=== PATIENT | female | born 1945 | race Hispanic/Latino ===

== ENCOUNTER 2018-01-20 09:26 | Emergency (ER) | payer OTHER ==
[2018-01-20] MEDS ORDERED: KETOROLAC TROMETHAMINE 30MG/ML ONE (10:41)
[2018-01-20] MEDS ORDERED: MORPHINE SULFATE 2 MG/ML 1ML SYG ONE (10:42)
[2018-01-20 11:04] LABS: BASOPHILS % (AUTO) 0.9 % (0.0-5.0); EOSINOPHILS % (AUTO) 0.7 % (0.0-8.0); HEMATOCRIT 40.9 % (36-48); LYMPHOCYTES % (AUTO) 17.8 % (21.0-51.0); MEAN CORPUSCULAR HEMOGLOBIN 28.3 pg (27.0-33.0); MEAN CORPUSCULAR HGB CONC 33.9 g/dL (32.0-36.0); MEAN CORPUSCULAR VOLUME 83.5 fL (79-99); MONOCYTES % (AUTO) 6.1 % (3.0-13.0); NEUTROPHILS % (AUTO) 74.5 % (40.0-77.0); PLATELET COUNT (AUTO) 252 K/uL (130-400); RED CELL DISTRIBUTION WIDTH 13.8 % (11.0-15.5); WHITE BLOOD COUNT (AUTO) 7.5 K/uL (4.8-10.8)
[2018-01-20 11:16] LABS: CREATININE 0.8 mg/dL (0.5-1.5); POTASSIUM 4.1 mmol/L (3.5-5.1)
[2018-01-20 11:22] LABS: ALBUMIN 3.9 g/dL (3.5-5.0); BILIRUBIN,TOTAL 0.6 mg/dL (0.2-1.0); TOTAL PROTEIN, SERUM 8.5 g/dL (6.0-8.3)
== END 2018-01-20 12:53 | disposition home or self-care (01) ==
LOC: EDH 09:26
DX: S16.1XXA Strain of muscle, fascia and tendon at neck level, initial encounter (principal); R51 Headache; M19.90 Unspecified osteoarthritis, unspecified site; I10 Essential (primary) hypertension; E07.9 Disorder of thyroid, unspecified; Z90.710 Acquired absence of both cervix and uterus; X58.XXXA Exposure to other specified factors, initial encounter; Y93.89 Activity, other specified; Y92.098 Other place in other non-institutional residence as the place of occurrence of the external cause; Y99.8 Other external cause status
CPT/HCPCS: 36415; 70450; 72125; 80053; 84484; 85025; 93005; 96374; 96375; 99285; J1885

== ENCOUNTER 2019-01-25 03:05 | Emergency (ER) | payer OTHER ==
[2019-01-25 03:38] LABS: BASOPHILS % (AUTO) 0.6 % (0.0-5.0); EOSINOPHILS % (AUTO) 1.9 % (0.0-8.0); HEMATOCRIT 37.9 % (36-48); LYMPHOCYTES % (AUTO) 25.8 % (21.0-51.0); MEAN CORPUSCULAR HEMOGLOBIN 28.5 pg (27.0-33.0); MEAN CORPUSCULAR HGB CONC 33.7 g/dL (32.0-36.0); MEAN CORPUSCULAR VOLUME 84.7 fL (79-99); MONOCYTES % (AUTO) 7.9 % (3.0-13.0); NEUTROPHILS % (AUTO) 63.8 % (40.0-77.0); NUCLEATED RED BLOOD CELLS 0.1 % (0.0-0.19); PLATELET COUNT (AUTO) 233 K/uL (130-400); RED BLOOD CELL COUNT(AUTO) 4.47 MIL/uL (4.00-5.50); RED CELL DISTRIBUTION WIDTH 13.8 % (11.0-15.5); WHITE BLOOD COUNT (AUTO) 7.5 K/uL (4.8-10.8)
[2019-01-25 03:42] LABS: POTASSIUM 4.1 mmol/L (3.5-5.1)
[2019-01-25 03:53] LABS: CREATININE 0.9 mg/dL (0.5-1.5)
[2019-01-25] MEDS ORDERED: ONDANSETRON HCL 4 MG/2 ML VIAL ONE (04:21)
[2019-01-25] MEDS ORDERED: ORPHENADRINE CITRATE 30 MG/ML ML ONE (04:22)
[2019-01-25] MEDS ORDERED: KETOROLAC TROMETHAMINE 15MG/ML ONE (04:22)
[2019-01-25] MEDS ORDERED: MORPHINE SULFATE 2 MG/ML 1ML SYG ONE (04:22)
[2019-01-25] MEDS ORDERED: SODIUM CHLORIDE 0.9% 500ML 500 ML IV ONE (06:09)
[2019-01-25] MEDS ORDERED: IOHEXOL-350 75 ML VIAL IV ONE (06:25)
== END 2019-01-25 08:54 | disposition home or self-care (01) ==
LOC: EDH 03:05
DX: R07.89 Other chest pain (principal); M62.830 Muscle spasm of back; I10 Essential (primary) hypertension; M19.90 Unspecified osteoarthritis, unspecified site; E07.9 Disorder of thyroid, unspecified; Z90.710 Acquired absence of both cervix and uterus
CPT/HCPCS: 36415; 71046; 71275; 80048; 82550; 84484; 85025; 85378; 93005; 96374; 96375; 99285; J1885; J2360; J2405; J7040; Q9967

== ENCOUNTER 2019-08-26 21:15 | Emergency (ER) | payer OTHER ==
[2019-08-26] MEDS ORDERED: DiphenhydrAMINE HCL 50 MG/ML VIAL ONE (21:24)
[2019-08-26] MEDS ORDERED: FAMOTIDINE/PF 20 MG/2 ML VIAL IV ONE (21:24)
[2019-08-26] MEDS ORDERED: METHYLPREDNISOLONE SOD SUCC 125MG/2ML VIAL ONE (21:30)
== END 2019-08-26 22:34 | disposition home or self-care (01) ==
LOC: EDH 21:15
DX: S60.562A Insect bite (nonvenomous) of left hand, initial encounter (principal); L50.0 Allergic urticaria; I10 Essential (primary) hypertension; M19.90 Unspecified osteoarthritis, unspecified site; E07.9 Disorder of thyroid, unspecified; W57.XXXA Bitten or stung by nonvenomous insect and other nonvenomous arthropods, initial encounter; Y93.89 Activity, other specified; Y92.096 Garden or yard of other non-institutional residence as the place of occurrence of the external cause; Y99.8 Other external cause status
CPT/HCPCS: 96365; 96375; 99284; J1200; J2930; J3490

== ENCOUNTER 2020-06-01 22:52 | Emergency (ER) | payer OTHER ==
[2020-06-02] MEDS ORDERED: KETOROLAC TROMETHAMINE 30MG/ML ONE (01:04)
[2020-06-02] MEDS ORDERED: TRAMADOL HCL 50 MG TABLET ONE (01:04)
== END 2020-06-02 01:33 | disposition home or self-care (01) ==
LOC: EDH 22:52
DX: S16.1XXA Strain of muscle, fascia and tendon at neck level, initial encounter (principal); I10 Essential (primary) hypertension; E07.9 Disorder of thyroid, unspecified; M19.90 Unspecified osteoarthritis, unspecified site; Z90.710 Acquired absence of both cervix and uterus; X58.XXXA Exposure to other specified factors, initial encounter; Y93.89 Activity, other specified; Y92.89 Other specified places as the place of occurrence of the external cause; Y99.8 Other external cause status
CPT/HCPCS: 72040; 96372; 99283; J1885

== ENCOUNTER 2021-08-21 09:13 | Emergency (ER) | payer OTHER ==
[~2021-08-21] VITALS: Ht 167.6 cm; Wt 68.0 kg
[2021-08-21] MEDS ORDERED: CYCLOBENZAPRINE HCL 10 MG TABLET PO ONE (10:00)
[2021-08-21] MEDS ORDERED: KETOROLAC 15MG/ML VIAL (15MG/ML) IM ONE (10:00)
[2021-08-21] MEDS ORDERED: CYCL5TAB PO (10:43)
[2021-08-21] MEDS ORDERED: IBUP-2070 PO (10:43)
[2021-08-21 10:54] VITALS: BP 159/54
== END 2021-08-21 11:02 | disposition home or self-care (01) ==
LOC: EDH 09:13
DX: M54.2 Cervicalgia (principal); M43.6 Torticollis; I10 Essential (primary) hypertension; Z98.890 Other specified postprocedural states
CPT/HCPCS: 96372; 99283; J1885

== ENCOUNTER 2022-07-19 14:49 | Emergency (ER) | payer OTHER ==
[~2022-07-19] VITALS: Ht 157.5 cm; Wt 59.0 kg
[~2022-07-19 14:49] MED LIST: CYCL5TAB PO; IBUP-2070 PO
[2022-07-19 15:38] VITALS: BP 192/74
[2022-07-19] MEDS ORDERED: ACETAMINOPHEN WITH CODEINE 1 TAB TAB PO ONE (17:30)
[2022-07-19 17:55] LABS: BASOPHILS % (AUTO) 0.4 % (0.0-5.0); EOSINOPHILS % (AUTO) 1.1 % (0.0-8.0); LYMPHOCYTES % (AUTO) 18.8 % (21.0-51.0); MEAN CORPUSCULAR HEMOGLOBIN 27.5 pg (27.0-33.0); MEAN CORPUSCULAR HGB CONC 32.3 g/dL (32.0-36.0); MEAN CORPUSCULAR VOLUME 85.2 fL (79-99); MONOCYTES % (AUTO) 5.3 % (3.0-13.0); NEUTROPHILS % (AUTO) 74.3 % (40.0-77.0); PLATELET COUNT (AUTO) 239 K/uL (130-400); RED BLOOD CELL COUNT(AUTO) 4.11 MIL/uL (4.00-5.50); RED CELL DISTRIBUTION WIDTH 13.2 % (11.0-15.5); WHITE BLOOD COUNT (AUTO) 7.3 K/uL (4.8-10.8)
[2022-07-19 18:05] LABS: POTASSIUM 4.4 mmol/L (3.5-5.1)
[2022-07-19 18:12] LABS: ALBUMIN 3.6 g/dL (3.5-5.0); TOTAL PROTEIN, SERUM 7.5 g/dL (6.0-8.3)
[2022-07-19] MEDS ORDERED: ACET-2079 PO (18:51)
== END 2022-07-19 19:02 | disposition home or self-care (01) ==
LOC: EDH 14:49
DX: S00.83XA Contusion of other part of head, initial encounter (principal); R07.81 Pleurodynia; I10 Essential (primary) hypertension; M19.90 Unspecified osteoarthritis, unspecified site; E05.90 Thyrotoxicosis, unspecified without thyrotoxic crisis or storm; Z90.710 Acquired absence of both cervix and uterus; W18.39XA Other fall on same level, initial encounter; Y93.89 Activity, other specified; Y92.89 Other specified places as the place of occurrence of the external cause; Y99.8 Other external cause status
CPT/HCPCS: 36415; 70450; 70486; 71101; 80053; 84484; 85025; 93005

== ENCOUNTER 2024-07-31 19:29 | Emergency (ER) | payer OTHER ==
[~2024-07-31] VITALS: Ht 152.4 cm; Wt 59.0 kg
[~2024-07-31 19:29] MED LIST changes: +ACET-2079 PO; -CYCL5TAB PO; +CYCL5TAB3 PO
[2024-07-31 19:59] LABS: BASOPHILS # (AUTO) 0.03 K/uL (0.00-0.20); BASOPHILS % (AUTO) 0.3 % (0.0-5.0); EOSINOPHILS # (AUTO) 0.01 K/uL (0.00-0.70); EOSINOPHILS % (AUTO) 0.1 % (0.0-8.0); HEMATOCRIT 33.4 % (36-48); IMMATURE GRANULOCYTE ABSOLUTE 0.04 K/uL (0-1); LYMPHOCYTES # (AUTO) 0.7 K/uL (1.0-4.8); LYMPHOCYTES % (AUTO) 7.2 % (21.0-51.0); MEAN CORPUSCULAR VOLUME 84.1 fL (79-99); MONOCYTES # (AUTO) 0.5 K/uL (0.1-1.0); MONOCYTES % (AUTO) 4.8 % (3.0-13.0); NEUTROPHILS # (AUTO) 8.3 K/uL (1.8-7.7); NEUTROPHILS % (AUTO) 87.2 % (40.0-77.0); PLATELET COUNT (AUTO) 247 K/uL (130-400); RED BLOOD CELL COUNT(AUTO) 3.97 MIL/uL (4.00-5.50); RED CELL DISTRIBUTION WIDTH 12.5 % (11.0-15.5); WHITE BLOOD COUNT (AUTO) 9.6 K/uL (4.8-10.8)
[2024-07-31 20:06] LABS: CREATININE 0.9 mg/dL (0.5-1.0); POTASSIUM 3.9 mmol/L (3.5-5.1)
[2024-07-31 20:49] LABS: APPEARANCE,URINE CLEAR (CLEAR); BILIRUBIN,URINE NEGATIVE (NEGATIVE); COLOR,URINE LIGHT-YELLOW (YELLOW); GLUCOSE, URINE (UA) NEGATIVE (NEGATIVE); KETONES,URINE 40 mg/dL (NEGATIVE); LEUKOCYTE ESTERASE ,URINE 500 Leu/uL (NEGATIVE); NITRATE,URINE NEGATIVE (NEGATIVE); OCCULT BLOOD,URINE SMALL (NEGATIVE); PH,URINE 6.5 (5.0-8.0); PROTEIN,URINE 10 mg/dL (NEGATIVE); UROBILINOGEN,URINE 0.2 mg/dL (0.2-1.0)
[2024-07-31 20:50] LABS: ADD UA MICROSCOPIC YES
[2024-07-31 20:52] LABS: MUCUS,URINE RARE LPF (None Seen); OTHER CASTS, URINE 2 /LPF (None Seen); RBC,URINE 26-50 /HPF (0-1); SQUAMOUS EPITHELIAL CELL,UR FEW /HPF (0-2); YEAST,URINE BUDDING RARE /HPF (None Seen)
--- NOTE | 2024-07-31 23:14 | ERN ---
General Chief Complaint: Dizzy/Light Headed Stated Complaint: DIZZINESS, WEAKNESS Time Seen by MD: 21:12 Source: patient History of Present Illness Initial Comments Is an 79-year-old female who was working outside in the d and also trying to get some medications out of her car and I think she said that she fell onto her left side. She comes in today with pain on her left wrist and forearm and left flank. Allergies: Coded Allergies: No Known Allergies (Unverified Allergy, Unknown, 01/25/19) Home Meds Active Scripts Acetaminophen with Codeine (Acetaminophen-Cod #3 Tablet) 1 Each Tablet, 1 TAB PO Q6H PRN for SEVERE PAIN (7-10), #15 TAB Prov:ADAN MATHEWS MD 07/19/22 Cyclobenzaprine HCl (Cyclobenzaprine HCl) 5 Mg Tablet, 5 MG PO TID, #15 TAB Prov:ADAN MATHEWS MD 08/21/21 Ibuprofen (Ibuprofen) 600 Mg Tablet, 600 MG PO Q6H PRN for PAIN, #30 TAB Prov:ADAN MATHEWS MD 08/21/21 Past Medical History Past Medical History: Arthritis, Hypertension, Hyperthyroid Medical History Other: THYROID Past Surgical History: Hysterectomy Social History Social History: Negative, Lives with family Female( History) History: Not Applicable ROS Dictation Aside from the chief complaint review of systems is negative she has no pain in any of her other extremities she has no visual changes no headaches no chest pain just some lateral chest wall tenderness on the left side left wrist pain no pain in her lower back or in her lower extremities no urination problems no GI symptoms Physical Exam General Appearance: (+) mild distress Orientation: (+) alert Head/Face Trauma: No Eye: bilateral eye normal inspection, bilateral eye PERRL, bilateral eye EOMI Ear, Nose, Throat: (+) hearing grossly normal, (+) normal ENT inspection Neck: (+) normal inspection, (+) supple, (+) no JVD, (+) non-tender Respiratory: (+) lungs clear, (+) well ventilated Heart: (+) regular Vascular: (+) no edema, (+) normal peripheral pulse Gastrointestinal: (+) soft, (+) non-tender, (+) no organomegaly, (+) bowel sound present Skin: (+) normal color Skin Comment Patient does have severe tenting of her skin Results Laboratory and Microbiology Lab and Micro Result Laboratory Tests Test 07/31/24 19:50 07/31/24 20:42 White Blood Count 9.6 K/uL (4.8-10.8) Red Blood Count 3.97 MIL/uL (4.00-5.50) L Hemoglobin 10.7 g/dL (12.0-16.0) L Hematocrit 33.4 % (36-48) L Mean Corpuscular Volume 84.1 fL (79-99) Mean Corpuscular Hemoglobin 27.0 pg (27.0-33.0) Mean Corpuscular Hemoglobin Concent 32.0 g/dL (32.0-36.0) Red Cell Distribution Width 12.5 % (11.0-15.5) Platelet Count 247 K/uL (130-400) Mean Platelet Volume 10.2 fL (7.5-10.5) Immature Granulocyte % (Auto) 0.4 % (0-1) Neutrophils (%) (Auto) 87.2 % (40.0-77.0) H Lymphocytes (%) (Auto) 7.2 % (21.0-51.0) L Monocytes (%) (Auto) 4.8 % (3.0-13.0) Eosinophils (%) (Auto) 0.1 % (0.0-8.0) Basophils (%) (Auto) 0.3 % (0.0-5.0) Neutrophils # (Auto) 8.3 K/uL (1.8-7.7) H Lymphocytes # (Auto) 0.7 K/uL (1.0-4.8) L Monocytes # (Auto) 0.5 K/uL (0.1-1.0) Eosinophils # (Auto) 0.01 K/uL (0.00-0.70) Basophils # (Auto) 0.03 K/uL (0.00-0.20) Absolute Immature Granulocyte (auto 0.04 K/uL (0-1) Nucleated Red Blood Cells 0.0 % (0.0-0.19) White Cell Morphology Comment See comments Sodium Level 136 mmol/L (136-145) Potassium Level 3.9 mmol/L (3.5-5.1) Chloride Level 100 mmol/L (101-111) L Carbon Dioxide Level 26 mmol/L (21-32) Blood Urea Nitrogen 16 mg/dL (7-18) Creatinine 0.9 mg/dL (0.5-1.0) Glomerular Filtration Rate Calc 65 mL/min (>90) Random Glucose 120 mg/dL (70-105) H Total Calcium 9.4 mg/dL (8.5-10.1) Troponin I High Sensitivity 9 ng/L (4-50) Urine Color LIGHT-YELLOW (YELLOW) Urine Appearance CLEAR (CLEAR) Urine pH 6.5 (5.0-8.0) Urine Specific Nursery 1.015 (1.001-1.031) Urine Protein 10 mg/dL (NEGATIVE) H Urine Glucose (UA) NEGATIVE mg/dL (NEGATIVE) Urine Ketones 40 mg/dL (NEGATIVE) H Urine Occult Blood SMALL (NEGATIVE) H Urine Nitrate NEGATIVE (NEGATIVE) Urine Bilirubin NEGATIVE mg/dL (NEGATIVE) Urine Urobilinogen 0.2 mg/dL (0.2-1.0) Urine Leukocyte Esterase 500 Paxton/uL (NEGATIVE) H Urine RBC 26-50 /HPF (0-1) H Urine WBC 11-25 /HPF (0-1) H Urine Squamous Epithelial Cells FEW /HPF (0-2) Urine Bacteria None /HPF (None Seen) Urine Other Casts 2 /LPF (None Seen) Urine Yeast RARE /HPF (None Seen) MDM Patient will need a CT scan of her head and plain films of her left wrist. I suspect dehydration so I am ordering fluids and a BMP as well as a CBC in case she is anemic urine analysis has also been ordered. Plain films of the left wrist and forearm are negative beyond arthritic changes. CT head negative for intracerebral hemorrhage or injuries. CBC shows no anemia and no white blood cell count chemistry panel normal as well urine does show the presence of ketones consistent with the idea that the patient maybe a little bit dehydrated. I did write for some lactated Ringer's once that L of lactated Ringer's is in we can reassess the patient and see if she is stable for discharge. Patient's orthostatic measurements were negative for orthostasis. She is safe to go home. We will give her a little Tylenol for pain before she leaves. Patient and family both feel comfortable with discharge. ED Course Orders Procedure Category Date Status Time Cbc With Differential LAB 07/31/24 Complete 19:46 Basic Metabolic Panel LAB 07/31/24 Complete 19:46 Urinalysis Profile LAB 07/31/24 Complete 20:41 Culture Urine ELENA 07/31/24 In Process 20:50 Troponin I High LAB 07/31/24 Complete Sensitivity 21:28 12 Lead Ekg Tracing- EKG 07/31/24 Logged Technical 21:28 Ct Head/Brain W/O CT 07/31/24 Resulted Contrast 23:09 Wrist 2vws Lt RAD 07/31/24 Resulted 23:09 Lactated Ringers PHA 07/31/24 In Process 1000ml (Lactated 23:30 Orthostatic Vital CPOE 08/01/24 Transmitted Signs 00:25 Current Medications Medications (Trade) Dose Ordered Sig/Froylan Route PRN Reason Start Time Stop Time Status Last Admin Dose Admin Lactated Ringer's 909 ml @ 303 mls/hr ONCE ONCE IV 07/31/24 23:30 08/01/24 02:29 08/01/24 00:02 Vital Signs Date Time Temp Pulse Resp B/P (MAP) Pulse Ox O2 Delivery O2 Flow Rate FiO2 07/31/24 19:44 98.8 78 16 148/49 98 Room Air* 0 21 07/31/24 19:31 98.1 90 16 153/101 99 Room Air 0 DX & DISP Disposition: Discharge Departure Impression: Primary Impression: Ground-level fall Additional Impression: Dehydration after exertion Condition: Stable Referrals: ELVA DELACRUZ (PCP) ARRON KERN MD Jul 31, 2024 23:14
--- NOTE | 2024-07-31 23:41 | HMCIMG ---
CT HEAD/BRAIN W/O CONTRAST HISTORY: Status post fall COMPARISON: None TECHNIQUE: Multiple sequential axial images of the head were obtained from the base of the skull through vertex. Patient was not given contrast through intravenous route. FINDINGS: The ventricles and extraventricular CSF spaces are nondilated for patient's age. Encephalomalacia changes are seen in the left temporal lobe. There is no midline shift, mass effect or herniation. No acute intracranial bleed is seen. Visualized portion of the paranasal sinuses are grossly within normal limits. IMPRESSION: 1. No acute intracranial bleed is seen. CT was performed with one or more following dose reduction techniques: automated exposure control, adjustment of the mA and kv according to patient's size, or use of a iterative reconstruction technique.
[2024-08-01] MEDS: LACTATED RINGERS 1000ML 909 ML IV ONE (00:02)
--- NOTE | 2024-08-01 00:03 | HMCIMG ---
WRIST 2VWS LT HISTORY: Status post fall COMPARISON: None TECHNIQUE: 3 images of the left wrist were obtained. FINDINGS: There is no acute displaced fracture or dislocation. Mild radiocarpal joint space narrowing is seen. Degenerative changes is seen. Bone density is seen in the first digit interphalangeal joint area may be related to previous trauma versus loose body. Degenerative changes are seen. IMPRESSION: 1. Findings as described above.
[2024-08-01] MEDS: acetaMINOPHEN 500 MG TABLET ONE (01:22)
[2024-08-01] MEDS: acetaMINOPHEN 500 MG TABLET PO ONE (01:22)
[2024-08-01 01:26] VITALS: BP 138/49; PULSE 75; RESP 16; TEMP 98.6; O2SAT 99
--- NOTE | 2024-08-01 07:36 | EKG ---
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
== END 2024-08-01 01:27 | disposition home or self-care (01) ==
LOC: EDH 19:29
DX: E86.0 Dehydration (principal); I10 Essential (primary) hypertension; M19.90 Unspecified osteoarthritis, unspecified site; Z90.710 Acquired absence of both cervix and uterus
CPT/HCPCS: 99285; 96360; 70450; 84484; 80048; 85025; 87086; 81001; 36415; 73100; 93005; J7120